=== PATIENT | male | born 1955 | race Caucasian/White ===

== ENCOUNTER 2019-02-09 20:11 | Emergency (ER) | payer OTHER ==
[~2019-02-09] VITALS: Wt 65.9 kg
[2019-02-09] MEDS ORDERED: AZIT250T PO (22:05)
--- NOTE | 2019-02-09 22:06 | ERD ---
ER Documentation Chief Complaint Chief Complaint bib ra from home for n/v blood hx of lung ca, HPI Patient is a 63-year-old male with lung cancer in remission who presents with coughing blood. The patient was brought in by ambulance. Please note an [place] event attendant was used. The patient was coughing up blood this morning. He is speaking in full sentences. He said that it was "a lot of blood". He is getting injections of a blood thinner for previous pulmonary embolism. Upon review of old medical records this is the patient's first visit to the emergency department. He does have a primary doctor. ROS All systems reviewed and are negative except as per history of present illness. Medications Home Meds Active Scripts Azithromycin* (Zithromax*) 250 Mg Tablet, 250 MG PO .ZPACK DIRECTED, #6 TAB TAKE 500 MG (2 TABS) THE FIRST DAY THEN 250 MG (1 TAB) DAYS 2-5 Prov:OSCAR HOLBROOK MD 02/09/19 Reported Medications Glipizide* (Glipizide*) 10 Mg Tablet, 10 MG PO AC BREAKFAST BEDTIME, TAB 02/09/19 Enoxaparin Sodium (Enoxaparin Sodium) 80 Mg/0.8 Ml Syringe, 80 MG SC BID, SYR 02/09/19 Metformin* (Glucophage*) 500 Mg Tab, 500 MG PO WITH BREAKFAST DINNE, #30 TAB 02/09/19 Allergies Allergies: Coded Allergies: No Known Allergy (Unverified , 02/09/19) PMhx/Soc Hx Miscellaneous Medical Probl: Yes (DM, LUNG CA) Hx Alcohol Use: No Hx Substance Use: No Hx Tobacco Use: Yes Smoking Status: Current some day smoker FmHx Family History: No diabetes Physical Exam Vitals Vital Signs Date Temp Pulse Resp B/P (MAP) Pulse Ox O2 O2 Flow FiO2 Time Delivery Rate 02/09/19 98.1 71 19 120/61 96 22:29 (80) 02/09/19 98.1 89 19 121/65 96 20:18 (83) Physical Exam Const: No acute distress Head: Atraumatic Eyes: Normal Conjunctiva ENT: Normal External Ears, Nose and Mouth. Neck: Full range of motion. No meningismus. Resp: Clear to auscultation bilaterally Cardio: Regular rate and rhythm, no murmurs Abd: Soft, non tender, non distended. Normal bowel sounds Skin: No petechiae or rashes Back: No midline or flank tenderness Ext: No cyanosis, or edema Neur: Awake and alert Psych: Normal Mood and Affect Result Diagram: 02/09/19203502/09/192035 Results 24 hrs Laboratory Tests Test 02/09/19 20:36 White Blood Count 6.8 10^3/ul Red Blood Count 4.46 10^6/ul Hemoglobin 13.1 g/dl Hematocrit 39.7 % Mean Corpuscular Volume 89.0 fl Mean Corpuscular Hemoglobin 29.4 pg Mean Corpuscular Hemoglobin Concent 33.0 g/dl Red Cell Distribution Width 13.9 % Platelet Count 286 10^3/UL Mean Platelet Volume 10.1 fl Immature Granulocytes % 0.400 % Neutrophils % 63.5 % Lymphocytes % 24.1 % Monocytes % 7.8 % Eosinophils % 3.6 % Basophils % 0.6 % Nucleated Red Blood Cells % 0.0 /100WBC Immature Granulocytes # 0.030 10^3/ul Neutrophils # 4.3 10^3/ul Lymphocytes # 1.6 10^3/ul Monocytes # 0.5 10^3/ul Eosinophils # 0.2 10^3/ul Basophils # 0.0 10^3/ul Nucleated Red Blood Cells # 0.0 10^3/ul Prothrombin Time 12.7 Sec Prothrombin Time Ratio 1.0 INR International Normalized Ratio 0.94 Activated Partial Thromboplast Time 33.6 Sec Sodium Level 144 mmol/L Potassium Level 4.5 mmol/L Chloride Level 104 mmol/L Carbon Dioxide Level 28 mmol/L Anion Gap 12 Blood Urea Nitrogen 14 mg/dl Creatinine 0.89 mg/dl Est Glomerular Filtrat Rate mL/min > 60 mL/min Glucose Level 103 mg/dl Calcium Level 9.6 mg/dl Total Bilirubin 0.2 mg/dl Direct Bilirubin 0.00 mg/dl Indirect Bilirubin 0.2 mg/dl Aspartate Amino Transf (AST/SGOT) 21 IU/L Alanine Aminotransferase (ALT/SGPT) 28 IU/L Alkaline Phosphatase 47 IU/L Troponin I < 0.012 ng/ml Total Protein 7.8 g/dl Albumin 4.6 g/dl Globulin 3.20 g/dl Albumin/Globulin Ratio 1.43 Procedures/MDM EKG read by me: Rate/Rhythm: First-degree block at a rate of 76 Intervals: Normal Impression: First-degree block without ischemia Chest x-ray read by radiology shows scarring and possible pneumonia per radiology. Smoking Cessation Therapy: Pt. was lectured for greater than 3 minutes on the health risks of continued smoking and the benefits of cessation. Patient is a 63-year-old male who presents with coughing blood. The patient has an x-ray which shows some scarring to the right lung. He has no sign of pneumothorax at this time. The patient will be given a prescription for Zithro max. He is well-appearing and is having no hemoptysis at this time. He can return for any worsening symptoms. He should follow-up with his primary doctor within 24-48 hours. Departure Diagnosis: Primary Impression: Hemoptysis Additional Impression: Bronchitis Condition: Fair Patient Instructions: Bronchitis, Antiobiotic Treatment (Adult), Hemoptysis Additional Instructions: Call your primary care doctor TOMORROW for an appointment during the next 1-2 days.See the doctor sooner or return here if your condition worsens before your appointment time. OSCAR HOLBROOK MD Feb 09, 2019 22:06
[2019-02-09] MEDS ORDERED: ENOX80DI2 SC (22:24)
[2019-02-09] MEDS ORDERED: METF-849 PO (22:24)
[2019-02-09] MEDS ORDERED: GLIP10TA14 PO (22:24)
[2019-02-09 22:29] VITALS: BP 120/61; PULSE 71; RESP 19
== END 2019-02-09 22:31 | disposition home or self-care (01) ==
LOC: E/R 20:11
DX: J40 Bronchitis, not specified as acute or chronic (principal); E11.9 Type 2 diabetes mellitus without complications; Z85.118 Personal history of other malignant neoplasm of bronchus and lung; Z79.84 Long term (current) use of oral hypoglycemic drugs
CPT/HCPCS: 36415; 71045; 80053; 84484; 85025; 85610; 85730; 86850; 86900; 86901; 93005; Z7502